=== PATIENT | male | born 2000 | race Caucasian/White ===

== ENCOUNTER 2021-03-21 07:17 | Emergency (ER) | payer OTHER ==
[~2021-03-21] VITALS: Ht 182.9 cm; Wt 97.7 kg
[2021-03-21 07:34] VITALS: BP 143/75; TEMP 98.5
[2021-03-21 07:59] LABS: STREP SCREEN NEGATIVE
[2021-03-21 08:11] VITALS: PULSE 97
== END 2021-03-21 08:11 | disposition home or self-care (01) ==
LOC: COL.ER 07:17
PROVIDERS: Emergency Medicine
DX: J02.9 Acute pharyngitis, unspecified (principal)